=== PATIENT | male | born 1990 ===

== ENCOUNTER → 2020-02-08 | Outpatient (CLI) | payer OTHER ==
[~2020-02-08] MED LIST: FLUO10CA13 PO; GABA600T PO; PROP60CA36 PO; TRAZ-118 PO; Vitamin D PO
--- NOTE | 2020-02-08 09:20 | PDOC1 ---
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 Patient reports no loss of motor function but significant pain with walking standing changing positions wakes him from sleep about 3-4 times a night does not affect his bowel bladder control or his ability to walk. Patient more is worse when he first got a bed in the morning and again is to keep it from sleep he is tried Neurontin as well as Flexeril Neurontin did help moderately and has taken that currently patient has had physical therapy in the past also chiropractic treatment both in 2019 which were helpful with at times also use a TENS unit which was quite helpful as well. Patient reports no loss of motor function but significant fatigability especially in the right leg with walking and standing but no loss of function. Patient scribes pain in the back is constant sharp shooting into the right leg aching as well is cramping sometimes in the back itself patient rates his disability rating 0-10 10 being the worst, as a 4 with family home responsibilities and occupational activities 6 with recreation 3 with social activity 5 with life support activities. PAST MEDICAL HISTORY: PMH: Hypertension, arthritis PREVIOUS SURGERIES: Past Surgical Hx: [place] teeth extraction CURRENT MEDICATIONS: Current Meds: Active Scripts Medications Dose Route/Sig Max Daily Dose Days Date Category [Vitamin D] Unknown Dose PO DAILY 02/08/20 Reported Prozac (Fluoxetine Hcl) 10 Mg Capsule Unknown Dose PO DAILY 02/08/20 Reported Inderal La (Propranolol Hcl) 60 Mg Cap.sa.24h Unknown Dose PO DAILY 02/08/20 Reported Neurontin (Gabapentin) 600 Mg Tablet Unknown Dose PO BID 02/08/20 Reported Trazodone Hcl 50 Mg Tablet Unknown Dose PO HS 02/08/20 Reported ALLERGIES; Allergies: Coded Allergies: No Known Drug Allergies (Unverified , 02/08/20) FAMILY HISTORY: Family Hx: No major medical problems or conditions that he is aware of SOCIAL HISTORY: Social Hx: Patient does not take alcohol does not smoke not use any illegal illicit or recreational drugs is he is active duty and currently in custody REVIEW OF SYSTEMS: ROS: Positive for those items mentioned in history of present illness, all systems are reviewed, otherwise negative, is complete full and well-documented on patient's chart PHYSICAL EXAM: VS: Blood pressure is 117/81 pulse 56 respirations 16 temperature is 97.9 Height is 5 foot 8 inches weight is 167 pounds PE: PHYSICAL EXAMINATION: GENERAL: The patient is awake, alert, oriented, appropriate, very pleasant demeanor HEENT: Shows normocephalic, atraumatic. Extraocular movements are intact and symmetrical. Oral cavity: Mucous membranes moist and pink. Dentition is intact. NECK: Shows anterior throat supple without palpable lymphadenopathy noted. Swa llow reflex symmetrical. CHEST: Shows normal on inspection. Breath sounds are clear bilaterally, no rales rhonchi wheezes auscultated. HEART: Shows S1, S2 clear. No murmurs auscultated. ABDOMEN: Soft, nontender, nondistended, flat. No palpable organomegaly is noted. No rebound or guarding demonstrated. BACK: Shows spine grossly in the midline. Normal-appearing cervical lordotic curvature. There is slightly increased thoracic kyphosis, some minor flattening of the lumbar lordotic curvature. Lumbar paraspinous muscles show symmetrical on inspection, on palpation shows some moderate tenderness diffusely throughout the upper, middle and lower distribution of the paraspinous muscles, but without specific trigger points, without radiation of pain. The patient has good rotational motion of the lumbar spine, both laterally as well as extension and flexion without significant difficulty. No tenderness over the spinous processes, sacrum or sacroiliac regions. EXTREMITIES: Lower extremities show deep tendon reflexes 2+ in the patellar and tendo calcaneus tendons. Motor exam is 5 on a scale of 5 with right dorsiflexion, extension, quadriceps and hamstring flexion and 5/5 on the left. Peripheral pulses are 1+ posterior tibial. No peripheral edema is noted bilat erally. Lower extremities are warm and dry to touch, equal in color and appearance. Straight leg raise noted to be negative bilaterally. Gaenslen's and Ramón's maneuvers are negative bilaterally as well. The patient is able to stand, stand on his toes without significant difficulty or loss of balance. SKIN: Shows warm and dry, good turgor. No edema. No sores, rashes or bruising throughout. IMPRESSION: Impression: 29-year-old male with 9-year history low back right greater than left lower extremity pain Hypertension Arthritis Plan: Options were discussed with the patient including conservative medical management physical therapies interventional techniques. He like to pursue interventional techniques. We discussed a lumbar epidural steroid injection using description as well as anatomical models to describe the procedure. Also will order a MRI scan lumbar spine as it was ordered about a year ago but was not [facility]. We wait for preauthorization for lumbar epidural steroid injection once this is obtained we will have patient return in proceed at that time. In the meantime patient will continue with stretching strength exercises and will also recommend TENS unit as he has had success with this in the past. LINDSEY SWAIN MD Feb 08, 2020 09:19
== END | disposition home or self-care (01) ==
LOC: PNCL 08:00 → EEVIPCON 08:00
PROVIDERS: ATTEND Anesthesiology
DX: M54.5 Low back pain (principal); M79.604 Pain in right leg; I10 Essential (primary) hypertension; M19.90 Unspecified osteoarthritis, unspecified site; Z79.899 Other long term (current) drug therapy; Z98.890 Other specified postprocedural states
CPT/HCPCS: 99205; G0463